=== PATIENT | male | born 1965 ===

== ENCOUNTER 2020-10-26 11:37 | Emergency (ER) | payer SELFPAY ==
[~2020-10-26] VITALS: Ht 170.2 cm; Wt 127.3 kg
[2020-10-26 12:05] VITALS: TEMP 98.4
[2020-10-26 13:10] VITALS: BP 152/94; PULSE 74
== END 2020-10-26 13:10 | disposition home or self-care (01) ==
LOC: COL.ER 11:37
DX: U07.1 COVID-19 (principal); F17.210 Nicotine dependence, cigarettes, uncomplicated

== ENCOUNTER 2021-01-07 13:55 | Emergency (ER) | payer SELFPAY ==
[~2021-01-07] VITALS: Ht 167.6 cm; Wt 116.4 kg
[2021-01-07 14:01] VITALS: TEMP 97.7
[2021-01-07] MEDS ORDERED: DOXYCYCLINE 10100 MG PO (15:33)
[2021-01-07 15:49] VITALS: BP 175/95; PULSE 81
== END 2021-01-07 15:50 | disposition home or self-care (01) ==
LOC: COL.ER 13:55
DX: L02.511 Cutaneous abscess of right hand (principal); F17.200 Nicotine dependence, unspecified, uncomplicated